=== PATIENT | female | born 1965 | race African-American/Black ===

== ENCOUNTER 2019-03-24 02:27 | Emergency (ER) | payer OTHER ==
[2019-03-24 03:16] LABS: BASO % 0.1 % (0.0-2.0); EOS # 0.2 (0.0-0.7); EOS % 0.9 % (0-4.0); GRAN # 13.5 (1.4-6.5); GRAN % 84.8 % (42.2-75.2); LYMPH # 1.5 (1.2-3.4); LYMPH % 9.5 % (20.0-51.0); MEAN CELL VOLUME 80 fl (80.0-100.0); MEAN CORPUSCULAR HGB CONC 29 g/dl (33.0-37.0); MEAN PLATELET VOLUME 10.6 fl (7.4-10.4); MONO # 0.6 (0.1-0.6); MONO % 3.8 % (1.7-9.3); PLATELET COUNT 286 K/mm3 (130-400); RED BLOOD COUNT 1.32 M/mm3 (4.10-5.30)
[2019-03-24 03:20] LABS: HEMATOCRIT 10.5 % (37.0-47.0); MEAN CORPUSCULAR HEMOGLOBIN 23 pg (27.0-31.0)
[2019-03-24 03:22] LABS: INR 1.2 (0.8-3.0); PROTHROMBIN TIME 13.5 SECONDS (9.7-12.8)
[2019-03-24 03:24] VITALS: TEMP 97.7
[2019-03-24 03:30] LABS: ALANINE AMINOTRANSFERASE 20 U/L (9-52); ALBUMIN 1.9 gm/dL (3.5-5.0); ALKALINE PHOSPHATASE 114 U/L (50-136); ANION GAP 5 mmol/L (7-16); AST,SGOT 21 U/L (15-37); BILIRUBIN,TOTAL 0.3 mg/dL (0.0-1.0); BLOOD UREA NITROGEN 16 mg/dL (7-17); CARBON DIOXIDE 23 mmol/L (22-30); CHLORIDE 110 mmol/L (98-107); CREATININE, serum 0.58 (0.52-1.25); GLUCOSE 153 mg/dL (74-106); SODIUM 139 mmol/L (137-145); TOTAL PROTEIN 4.2 gm/dL (6.4-8.2)
[2019-03-24 03:33] LABS: POTASSIUM 2.9 mmol/L (3.4-5.0)
[2019-03-24 03:43] LABS: TROPONIN-I < 0.012 ng/mL (0.000-0.035)
[2019-03-24 04:28] VITALS: BP 120/60; PULSE 93
== END 2019-03-24 04:28 | disposition short-term general hospital (02) ==
LOC: COL.ER 02:27
PROVIDERS: Emergency Medicine
DX: K92.2 Gastrointestinal hemorrhage, unspecified (principal); K31.89 Other diseases of stomach and duodenum
CPT/HCPCS: C9113; J2405; J3480; P9016

== ENCOUNTER → 2021-12-11 | Outpatient (CLI) | payer OTHER ==
[2021-12-11 13:23] LABS: CLOSTRIDIUM DIFF A/B NEG; CLOSTRIDIUM DIFF A/B INTERP No C.diff present
== END ==
LOC: COL.LAB 11:02
PROVIDERS: Physician Assistant
DX: R19.7 Diarrhea, unspecified (principal)